=== PATIENT | male | born 1990 | race Asian ===

== ENCOUNTER 2018-10-14 11:13 | Inpatient (IN) | payer MEDICAID ==
[~2018-10-14] VITALS: Ht 167.6 cm; Wt 91.2 kg
[2018-10-14 11:48] VITALS: BP_SYST 159
[2018-10-14] MEDS ORDERED: NACL 0.9% 1,000 ML IV ONE (12:15)
[2018-10-14] MEDS ORDERED: ONDANSETRON HCL 4 MG/2 ML VIAL IVP ONE (12:15)
--- NOTE | 2018-10-14 12:26 | NUR ---
PT CALLED OUT IN WAITING ROOM BUT NO RESPONSE.
--- NOTE | 2018-10-14 12:30 | NUR ---
Pt placed in bed 2
--- NOTE | 2018-10-14 12:35 | NUR ---
Pt presents to ER c/o RLQ abdominal pain radiating to R back. Pt states pain was "severe" earlier but at time of assessment pt denies pain unless he remains motionless. Pt reports nausea and reports 1 episode of vomiting. Pt reports 1 episode of hematuria yesterday. Pt reports he thought he may have a UTI, and so he took AZO yesterday. Pt AOX4, speaking full sentences, no signs of acute distress, ambulatory.
[2018-10-14 12:40] LABS: HEMATOCRIT 42.2 % (36-54); HEMOGLOBIN 14.3 g/dL (14.0-18.0); MEAN CORPUSCULAR HEMOGLOBIN 29 pg (27-31); MEAN CORPUSCULAR HGB CONC 34 % (32-36); MEAN CORPUSCULAR VOLUME 87 fL (79.0-98.0); RED BLOOD CELL COUNT(AUTO) 4.88 MIL/uL (4.2-6.2); RED CELL DISTRIBUTION WIDTH 12.4 % (9.0-15.0); WHITE BLOOD COUNT (AUTO) 12.2 K/uL (4.8-10.8)
--- NOTE | 2018-10-14 12:40 | NUR ---
ER Dr. Mari at bedside examining patient.
[2018-10-14 12:41] LABS: BASOPHILS # (AUTO) 0.1 K/uL (0.0-0.2); BASOPHILS % (AUTO) 0.9 % (0.0-2.0); EOSINOPHILS % (AUTO) 0.3 % (0.0-4.0); LYMPHOCYTES # (AUTO) 0.7 K/uL (1.0-5.5); LYMPHOCYTES % (AUTO) 6.1 % (20.5-51.5); MONOCYTES # (AUTO) 0.3 K/uL (0.0-1.0); MONOCYTES % (AUTO) 2.2 % (1.7-9.3); NEUTROPHILS # (AUTO) 11.1 K/uL (1.8-7.7); NEUTROPHILS % (AUTO) 90.5 % (40.0-70.0); PLATELET COUNT (AUTO) 391 K/uL (130-430)
--- NOTE | 2018-10-14 12:45 | NUR ---
# 20 gauge angiocath placed to RAC. Use of asceptic technique. Opsite placed over site. Blood return noted. Flushed with 10 cc of normal saline. No evidence of infiltration noted. Patient tolerated well.
--- NOTE | 2018-10-14 12:49 | NUR ---
Pt refused administration of Zofran stating that he is no longer nauseous at this time. Dr. Mari informed of situation.
--- NOTE | 2018-10-14 12:50 | NUR ---
Medicated per MD orders. IVF infusing with no s/s of infiltration at this time. Will continue to monitor
[2018-10-14 12:51] LABS: BILIRUBIN,URINE NEGATIVE (NEGATIVE); BLOOD, URINE 3+ (NEGATIVE); CLARITY/URINE CLEAR (CLEAR); COLOR,URINE YELLOW (YELLOW); GLUCOSE,URINE NEGATIVE (NEGATIVE); KETONES,URINE 1+ (NEGATIVE); LEUKOCYTE ESTERASE ,URINE NEGATIVE (NEGATIVE); NITRITE, URINE NEGATIVE (NEGATIVE); PROTEIN URINE NEGATIVE (NEGATIVE)
[2018-10-14 12:57] LABS: BACTERIA,URINE FEW /HPF (None Seen); MUCUS,URINE 1+ /LPF (None Seen); RBC,URINE 20-50 /HPF (0-3); WBC,URINE 0-3 /HPF (0-3)
[2018-10-14 13:01] LABS: PROTHROMBIN TIME 10.2 SECS (9.5-12.5)
[2018-10-14 13:03] LABS: CALCIUM 9.8 mg/dL (8.4-11.0); CREATININE 1.03 mg/dL (0.55-1.30)
[2018-10-14 13:05] LABS: ALBUMIN 3.5 g/dL (3.4-4.8); TOTAL BILIRUBIN 0.6 mg/dL (0.0-1.0)
--- NOTE | 2018-10-14 13:57 | NUR ---
Patient transported to radiology via gurney, accompanied by rad staff.
--- NOTE | 2018-10-14 14:05 | NUR ---
Returned from radiology, back to [facility].
[2018-10-14] MEDS ORDERED: cefTRIAXone 1 GM IVPB PREMIX 50 ML IV ONE (15:00)
--- NOTE | 2018-10-14 15:05 | NUR ---
Pt reports he does not take any medications at home. No meds to report.
--- NOTE | 2018-10-14 15:19 | NUR ---
Report called to [facility] floor. Report given to Irina BRAVO.
--- NOTE | 2018-10-14 15:20 | NUR ---
Patient will be admitted to care of Dr. Jean. Admitted to medsurg unit. Will go to room 134a. Belongings list completed. Summary report printed. Report will be given at bedside. Transfer to [facility]. IV present no sign or symptom of infiltration.
--- NOTE | 2018-10-14 15:36 | NUR ---
ADMISSION NOTE Received patient from ER via ammon, received report from Jay BRAVO. Patient admitted with diagnosis of PNA. Patient oriented to hospital routine, call light, toileting and safety-patient verbalized understanding.
--- NOTE | 2018-10-14 15:40 | NUR ---
INITIAL NOTE PATIENT RECEIVED RESTING IN BED, PATIENT IS AWAKE, ALERT, AND ORIENTED, PATIENT DENIES ANY PAIN OR DISTRESS, PATIENT IS ABLE TO AMBULATE WITH STEADY GAIT, IV IS PATENT WITH NO SIGNS OF INFILTRATION, BREATHING IS EVEN AND UNLABORED, EDUCATED PATIENT COMBAT ENGINEER LIGHT SYSTEM AND PLAN OF CARE, WILL CONTINUE TO MONITOR, SAFETY PRECAUTIONS IN PLACE, CALL LIGHT WITHIN REACH.
[2018-10-14 16:14] VITALS: BP_SYST 133
[2018-10-14] MEDS ORDERED: ACETAMINOPHEN 325 MG TABLET PO PRN (16:30)
[2018-10-14] MEDS ORDERED: cefTRIAXone 1 GM IVPB PREMIX 50 ML IV SCH (16:30)
[2018-10-14] MEDS ORDERED: FAMOTIDINE 20 MG TABLET PO ONE (16:30)
[2018-10-14] MEDS ORDERED: KETOROLAC TROMETHAMINE 15 MG VIAL IVP PRN (16:30)
[2018-10-14] MEDS ORDERED: MORPHINE 4 MG/ML INJ. SYRINGE IVP PRN (16:30)
[2018-10-14] MEDS ORDERED: ONDANSETRON HCL 4 MG/2 ML VIAL IVP PRN (16:30)
[2018-10-14] MEDS ORDERED: AZITHROMYCIN 250 MG TABLET PO ONE (16:30)
--- NOTE | 2018-10-14 16:37 | NUR ---
PATIENT OFF THE FLOOR FOR CHEST X RAY AT THIS TIME.
--- NOTE | 2018-10-14 17:00 | NUR ---
PATIENT BACK FROM X RAY.
--- NOTE | 2018-10-14 17:24 | NUR ---
NOTES PATIENT RESTING IN BED, BREATHING EVEN AND UNLABORED, PATIENT DENIES ANY PAIN OR DISTRESS, WILL CONTINUE TO MONITOR, SAFETY PRECAUTIONS IN PLACE, CALL LIGHT WITHIN REACH.
--- NOTE | 2018-10-14 18:44 | NUR ---
CLOSING NOTE PATIENT IS RESTING IN BED, IV IS PATENT WITH NO SIGNS OF INFILTRATION, PATIENT DENIES ANY ACUTE DISTRESS OR PAIN, BREATHING IS EVEN AND UNLABORED, FAMILY IS AT BEDSIDE, PATIENT TOLERATED DINNER WELL WITH NO NAUSEA OR VOMITING, WILL ENDORSE REPORT TO ONCOMING NURSE, SAFETY PRECAUTIONS IN PLACE, CALL LIGHT WITHIN REACH.
--- NOTE | 2018-10-14 19:28 | NUR ---
OPENING NOTES Pt and endorsement received from day shift nurse. Pt is AAOx4, lying in bed. Pt on IVF of LR at 100ml/hr and infusing well on left AC G20. No complains of pain at this time. No signs of acute distress or SOB noted. Encouraged to use call light when needed. Pt refused bed alarm and was educated on safety precautions, pt verbalizes understanding. Bed at lowest level and call light with pt. Will continue to monitor.
[2018-10-14] MEDS: LR 1,000 ML IV SCH (19:39)
[2018-10-14 20:09] VITALS: BP_SYST 118
[2018-10-14] MEDS: FAMOTIDINE 20 MG TABLET PO SCH (20:14)
[2018-10-14] MEDS: TAMSULOSIN HCL 0.4 MG CAP PO SCH (20:14)
--- NOTE | 2018-10-14 22:30 | NUR ---
ROUNDS Pt is AAOx4, lying in bed with watching tv. No complains of discomfort or pain at this time. No signs of acute distress noted. Call light with pt and bed at lowest level. Will continue to monitor.
--- NOTE | 2018-10-15 00:51 | NUR ---
RESTING Pt is resting in bed with both eyes closed. With visible chest rise and fall with unlabored breathing noted. No signs of acute distress or SOB noted. Call light with pt and bed at lowest level. Will continue to monitor.
--- NOTE | 2018-10-15 03:18 | NUR ---
RESTING Pt is resting in bed with both eyes closed. With visible chest rise and fall with unlabored breathing noted. No signs of acute distress and no complains of pain at this time. Call light with pt and bed at lowest position. Will continue to monitor.
[2018-10-15] MEDS: LR 1,000 ML IV SCH (04:38)
[2018-10-15 05:46] VITALS: BP_SYST 122
--- NOTE | 2018-10-15 06:41 | NUR ---
CLOSING NOTES Pt is resting in bed with both eyes closed. With visible chest rise and fall with unlabored breathing noted. No signs of acute distress noted and no complains of pain. All needs attended throughout the shift. Call light with pt and bed at lowest position. Will endorse to day shift nurse.
[2018-10-15 07:08] LABS: BASOPHILS % (AUTO) 0.3 % (0.0-2.0); EOSINOPHILS # (AUTO) 0.3 K/uL (0.0-0.4); EOSINOPHILS % (AUTO) 2.5 % (0.0-4.0); HEMATOCRIT 38.5 % (36-54); LYMPHOCYTES # (AUTO) 1.9 K/uL (1.0-5.5); LYMPHOCYTES % (AUTO) 18.1 % (20.5-51.5); MEAN CORPUSCULAR HEMOGLOBIN 29 pg (27-31); MEAN CORPUSCULAR HGB CONC 34 % (32-36); MEAN CORPUSCULAR VOLUME 87 fL (79.0-98.0); MONOCYTES # (AUTO) 0.5 K/uL (0.0-1.0); MONOCYTES % (AUTO) 4.8 % (1.7-9.3); NEUTROPHILS % (AUTO) 74.3 % (40.0-70.0); PLATELET COUNT (AUTO) 372 K/uL (130-430); RED BLOOD CELL COUNT(AUTO) 4.41 MIL/uL (4.2-6.2); RED CELL DISTRIBUTION WIDTH 12.6 % (9.0-15.0); WHITE BLOOD COUNT (AUTO) 10.7 K/uL (4.8-10.8)
[2018-10-15 07:40] LABS: CALCIUM 9.3 mg/dL (8.4-11.0); CREATININE 0.8 mg/dL (0.55-1.30); POTASSIUM 4.3 mmol/L (3.5-5.1)
[2018-10-15 07:56] LABS: ALBUMIN 2.8 g/dL (3.4-4.8); FREE T4 (FREE THYROXINE) 1.2 ng/dl (0.8-1.5); THYROID STIMULATING HORMONE 1.12 uIu/mL (0.36-3.74); TOTAL BILIRUBIN 0.6 mg/dL (0.0-1.0)
[2018-10-15 08:48] VITALS: BP_SYST 125
[2018-10-15] MEDS ORDERED: cefTRIAXone 1 GM IVPB PREMIX 50 ML IV SCH (09:00)
[2018-10-15] MEDS ORDERED: AZITHROMYCIN 250 MG TABLET PO SCH (09:00)
[2018-10-15] MEDS: TAMSULOSIN HCL 0.4 MG CAP PO SCH (09:23)
[2018-10-15] MEDS: FAMOTIDINE 20 MG TABLET PO SCH (09:23)
--- NOTE | 2018-10-15 09:25 | NUR ---
due medication given at this time. watching tv. no pain nor sob noted.
--- NOTE | 2018-10-15 10:00 | NUR ---
DR DC CAME AND EVALUATE THE PATIENT STATUS.
[2018-10-15] MEDS ORDERED: CEPH-568 PO (10:02)
[2018-10-15] MEDS ORDERED: Z PACK (10:02)
[2018-10-15 11:06] VITALS: BP_SYST 122
--- NOTE | 2018-10-15 12:10 | NUR ---
PATIENT LEFT IN STABLE CONDITION. REFUSED TO HAVE WHEELCHAIR. WANTS TO WALK. ACCOMPANIED BY PAULA JERNIGAN. INSTRUCTED ALL DISCHARGE INSTRUCTION WITH PRESCRIPTION AND SEE THE PCP IN ONE WEEK. REMOVED IV ACCESS AND ID BAND
== END 2018-10-15 12:10 | disposition home or self-care (01) | DRG 139 ==
LOC: SED 11:13 → SMU 14:54
PROVIDERS: ADMIT Internal Medicine; ATTEND Internal Medicine
DX: J18.9 Pneumonia, unspecified organism (principal); K76.0 Fatty (change of) liver, not elsewhere classified; N13.30 Unspecified hydronephrosis; E66.9 Obesity, unspecified; N20.0 Calculus of kidney; Z68.32 Body mass index [BMI] 32.0-32.9, adult
CPT/HCPCS: 36415; 71046-TC; 76770; 80053; 81000-TC; 82150-TC; 83690-TC; 84439; 84443-TC; 85025; 85610-TC; 87040-TC; 96365; 99285; J0696; J2405; J7030; J7120; Q0144